=== PATIENT | female | born 1980 | race Caucasian/White ===

== ENCOUNTER 2017-09-09 14:40 | Inpatient (IN) | payer OTHER ==
--- NOTE | 2017-09-09 15:22 | ED ---
Extremity Problem HPI - General Chief complaint: Extremity Problem,Nontraumatic Stated complaint: Tightness In Legs Time Seen by Provider: 09/09/17 15:11 Source: patient, RN notes reviewed Mode of arrival: ambulatory Limitations: no limitations - History of Present Illness Initial comments: This is a 37-year-old female with a history of DVTs who presents to the emergency department with chief complaint of tightness in her left lower extremity. Patient states that she developed a tightness in her left leg yesterday morning. She states that when she has had previous DVTs, this is how it starts. She states that she is a resident at [facility] and they requested that she present to the emergency department to rule out a blood clot. Patient states that she has not noticed any swelling or pain. She reports increasing physical activity recently, stating that she walks up and down the hallways and stairwells. Patient states that she's had venous reconstruction of the left lower extremity from her calf all the way up to her low back. She states that she is currently on a Xarelto 20 mg as well as aspirin daily. Denies any fevers or chills, chest pain or shortness of breath, abdominal pain, nausea or vomiting. - Related Data Allergies Allergy/AdvReac Type Severity Reaction Status Date / Time No Known Allergies Allergy Verified 09/09/17 14:45 Review of Systems ROS Statement: Those systems with pertinent positive or pertinent negative responses have been documented in the HPI. ROS Other: All systems not noted in ROS Statement are negative. 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 HEENT: Head atraumatic, normocephalic. Pupils are equal, round and reactive to light. Extraocular movements intact. Oropharynx moist without erythema or exudate. Neck: Supple. Normal ROM. Cardiovascular: Regular rate and rhythm. No murmurs, rubs or gallops. Chest symmetrical. Respiratory: Lungs clear to auscultation bilaterally. No wheezes, rales or rhonchi. Normal respiratory effort with no use of accessory muscles. Musculoskeletal: Normal ROM, no tenderness bilateral upper and lower extremities. Ambulating normally. No swelling, erythema or tenderness on palpation of the left lower extremity. Sensation is intact. Pedal pulses are 2 + equal and palpable bilaterally. Negative Homans sign. Skin: [place], warm and dry without rashes or lesions. Neurological: Alert and oriented x3. CN II-XII grossly intact. Speech is fluent and answers are appropriate. No focal neuro deficits. Psychiatric: Normal mood and affect. No overt signs of depression or anxiety noted. Limitations: no limitations Course Vital Signs 09/09/17 14:43 Temperature 98.0 F Pulse Rate 70 Respiratory 20 Rate Blood Pressure 105/61 O2 Sat by Pulse 100 Oximetry Medical Decision Making - Medical Decision Making This is a 37-year-old female with a history of DVTs who presents to the emergency department for evaluation of left lower extremity tightness. Patient states that she is a resident of [facility] and that they sent her to the emergency department for an ultrasound to rule out a blood clot. Patient is currently taking Xarelto as well as an aspirin daily. Ultrasound venous Doppler was obtained and revealed evidence for a deep venous thrombosis from external iliac vein to femoral vein. Recommended admission to hospital for possible heparin and a vascular consult. Patient states that she wants to be discharged so that she can go to her own hospital which is 2 hours away. Patient states, "I know the drill and I do not want to stay here." Patient states she will be signing out AMA. I recommended against this, however patient refuses admission. [facility] was contacted and they informed patient that if she signed out AMA she would not be able to return to their facility. Patient is now in agreement for admission. This case was discussed with attending physician, Dr. Hdz who was in contact with Dr. Vyas. Patient will be started on high dose heparin and will be admitted to the hospital with consult to Dr. Dunn, vascular surgery. Patient is in agreement with this plan and voices understanding. All questions answered. - Radiology Data Radiology results: report reviewed Ultrasound venous Doppler duplex left lower extremity: Appears positive for DVT from external iliac vein to distal femoral vein. Internal echoes seen in femoral vein and noncompressible. Compressions deferred at stent site. Low level internal echoes present throughout the distribution of the deep veins of the left lower extremity from the level of the external iliac vein to peripheral femoral vein, there is lack of color-flow. Impression: Deep venous thrombosis throughout the visualized portions of the left lower extremity. Disposition Clinical Impression: Deep vein thrombosis of lower extremity Disposition: ADMITTED IP TO THIS HOSP Condition: Stable Is patient prescribed a controlled substance at d/c from ED?: No Referrals: None,Stated [Primary Care Provider] - 1-2 days Time of Disposition: 19:25
--- NOTE | 2017-09-09 17:47 | US ---
EXAMINATION TYPE: US venous doppler duplex LE LT DATE OF EXAM: 09/09/2017 4:51 PM COMPARISON: NONE CLINICAL HISTORY: pain, history of dvt. Hx of blood clot in long and left leg last year. On blood th inners. Left leg vein reconstruction with stent? SIDE PERFORMED: Left TECHNIQUE: The lower extremity deep venous system is examined utilizing real time linear array sonog gal with graded compression, doppler sonography and color-flow sonography. VESSELS IMAGED: External Iliac Vein (EIV) Common Femoral Vein Deep Femoral Vein Greater Saphenous Vein * Femoral Vein Popliteal Vein Small Saphenous Vein * Proximal Calf Veins (* superficial vessels) Left Leg: Appears POSITIVE for DVT from EIV to distal femoral vein. Internal echoes seen in femoral vein and non compressible. Compressions deferred at stent site. Low-level internal echoes present throughout the distribution of the deep veins of the left lower ext remity from the level of the external iliac vein to peripheral femoral vein, there is lack of color f low. IMPRESSION: Deep venous thrombosis throughout the visualized portions of the left lower extremity.
[2017-09-09] MEDS ORDERED: Acetaminophen-Codeine 300-30mg TAB PO PRN (19:28)
[2017-09-09] MEDS ORDERED: NALOXONE 0.4 MG/ML 1 ML VIAL IV PRN (19:28)
[2017-09-09] MEDS ORDERED: HEPARIN SODIUM,PORCINE 5,000 UNIT/ML 1 ML VIAL IV PRN (19:32)
[2017-09-09] MEDS ORDERED: HEPARIN SODIUM,PORCINE 5,000 UNIT/ML 1 ML VIAL IV ONE (19:32)
[2017-09-09 19:59] LABS: Basophils % (A) 1 %; Eosinophils # (A) 0.1 k/uL (0-0.7); Eosinophils % (A) 2 %; HCT 33.1 % (34.0-46.0); HGB 10.2 gm/dL (11.4-16.0); Hypochromasia Marked; Lymphocytes # (A) 2.4 k/uL (1.0-4.8); Lymphocytes % (A) 40 %; MCH 24.4 pg (25.0-35.0); MCHC 30.9 g/dL (31.0-37.0); Mean Platelet Volume 8.5; Monocytes # (A) 0.3 k/uL (0-1.0); Monocytes % (A) 5 %; Neutrophils % (A) 50 %; Platelet Count 257 k/uL (150-450); RBC 4.19 m/uL (3.80-5.40); RDW 15.7 % (11.5-15.5)
[2017-09-09 20:09] LABS: ALT 19 U/L (9-52); AST 11 U/L (14-36); Albumin 3.8 g/dL (3.5-5.0); Alkaline Phosphatase 72 U/L (38-126); Anion Gap 10 mmol/L; Blood Urea Nitrogen 17 mg/dL (7-17); Carbon Dioxide 25 mmol/L (22-30); Chloride 108 mmol/L (98-107); Glucose 82 mg/dL (74-99); Potassium 4.1 mmol/L (3.5-5.1); Sodium 143 mmol/L (137-145); Total Bilirubin 0.2 mg/dL (0.2-1.3); Total Protein 6.8 g/dL (6.3-8.2)
[2017-09-09 20:14] LABS: INR 1.2 (<1.2); Partial Thromboplastin Time 26.6 sec (22.0-30.0); Prothrombin Time 11.4 sec (9.0-12.0)
[2017-09-09] MEDS: HEPARIN SODIUM,PORCINE/D5W PMX 25,000 UNIT in DEXTROSE/WATER 1 500ML.BAG IV SCH (20:44)
[2017-09-09 21:59] VITALS: BMI 19.8
[2017-09-09] MEDS ORDERED: RIVAROXABAN 20 MG TAB PO SCH (22:45)
[2017-09-09] MEDS: traZODone HCL 50 MG TAB PO SCH (23:25)
[2017-09-09] MEDS: NICOTINE 21MG/24HR PATCH TRANSDERM SCH (23:25)
--- NOTE | 2017-09-09 23:49 | HP ---
HISTORY AND PHYSICAL DATE OF ADMISSION: 09/09/2017. DATE OF SERVICE: 09/09/2017 PRESENTING COMPLAINT: Left leg pain. HISTORY OF PRESENTING COMPLAINT: This is a 37-year-old patient with no family doctor who presented here from [facility]. The patient has been doing IV heroin for 4 years and is there for rehab. The patient's last IV heroin dose was 09/02/2017. The patient has had a prior DVT in the left leg in 2016 for which she is on Xarelto 20 mg and also had a pulmonary embolism in 2005. She thinks she has had blood work done, but never was told of any results. She presents with tightness of the left leg both in the calf, lower extremity and therefore presented to the ER. The patient did undergo a Doppler study and was found to have positive for DVT to the distal femoral vein. I started the patient on IV heparin. Consultation was made to Dr. Dunn from [facility] Surgery [facility] H[facility]. The patient denies any fever, chills and had no white count in the ER. REVIEW OF SYSTEMS: CONSTITUTIONAL: None. HEENT: None. RESPIRATORY: None. CARDIOVASCULAR: None. GASTROINTESTINAL: None. GENITOURINARY: None. MUSCULOSKELETAL: As above. DERMATOLOGICAL: Some chronic skin mcclure. HEMATOLOGICAL: None. LYMPHATICS: None. PSYCHIATRY: Some anxiety. NEUROLOGICAL: None. PAST MEDICAL HISTORY: DVT in the left leg 2016, pulmonary embolism 2005, cleft lip repair, WPW. PAST SURGICAL HISTORY: Vascular surgery to left leg, cleft lip repair. SOCIAL HISTORY: Patient lives with a fiance, has a 13-year-old child. Smokes a pack and a half a day, was doing IV heroin for the last 4 years. Last dose was 09/02/2017, currently at [facility]. FAMILY HISTORY: Reviewed, noncontributory to presentation. HOME MEDICATIONS: 1. Calcium/magnesium 500/250 two tablets daily. 2. Aspirin 81 mg a day. 3. Xarelto 20 mg before supper. 4. Zofran 8 mg every 6 hours p.r.n. 5. Catapres 0.1 mg q.4 p.r.n. 6. BuSpar 10 mg t.i.d. p.r.n. 7. Trazodone 50 mg q.h.s. ALLERGIES: None. EXAMINATION: On examination, afebrile, pulse 70, respirations 20, blood pressure 105/61, pulse ox 100% on room air. GENERAL APPEARANCE: Average built, sitting up, anxious-appearing. EYES: Pupils equal. Conjunctivae normal. HEENT: External appearance of nose and ears normal. Oral cavity normal. NECK: JVD not raised. Mass not palpable. RESPIRATORY: Effort normal. Lungs are clear. CARDIOVASCULAR: First and second sounds normal. No edema. ABDOMEN: Soft, nontender. Liver and spleen not palpable. LYMPHATIC: No lymph node palpable in neck or axillae. PSYCHIATRY: Alert and oriented x3. Mood and affect slightly anxious-appearing. EXTREMITIES: Slight tenderness on the inner side of the left leg thigh and the calf area. INVESTIGATIONS: White count 6, hemoglobin 10.2, platelets 257. Potassium 4.1, BUN and creatinine are normal. ASSESSMENT: 1. Acute deep venous thrombosis in the left lower extremity in a patient who already had a deep venous thrombosis last year, which is not symptomatic. The patient has no fever, no white count. Hence, it makes infective thrombophlebitis less likely and the patient is not looking that sick. At this point, the patient will be started on IV heparin. Xarelto has been held. Will get opinion from [facility] Surgery [facility] Hematology. 2. Chronic nicotine dependence. The patient was counseled against smoking and the complications thereof. More than 3 minutes was spent on this aspect of the case. 3. IV heroin user. The patient is currently in rehab. Will use Catapres p.r.n. for withdrawal symptoms. PLAN: See above. Care was discussed. The patient's questions were answered. The patient will be given a nicotine patch. MMODL / IJN: [id number] /
[2017-09-10] MEDS: LORazepam 1 MG TAB PO PRN ×2 (00:25→21:33)
[2017-09-10] MEDS: SODIUM CHLORIDE 0.9% 1,000 ML IV SCH ×3 (01:00→23:11)
[2017-09-10 03:29] LABS: Basophils % (A) 0 %; Eosinophils # (A) 0.1 k/uL (0-0.7); Eosinophils % (A) 2 %; HCT 30.4 % (34.0-46.0); HGB 9.3 gm/dL (11.4-16.0); Hypochromasia Marked; Lymphocytes # (A) 2.5 k/uL (1.0-4.8); Lymphocytes % (A) 48 %; MCH 24.7 pg (25.0-35.0); MCHC 30.6 g/dL (31.0-37.0); MCV 80.8 fL (80.0-100.0); Mean Platelet Volume 7.8; Monocytes # (A) 0.3 k/uL (0-1.0); Monocytes % (A) 6 %; Neutrophils # (A) 2.1 k/uL (1.3-7.7); Neutrophils % (A) 42 %; Platelet Count 206 k/uL (150-450); RBC 3.76 m/uL (3.80-5.40); WBC 5.1 k/uL (3.8-10.6)
[2017-09-10] MEDS: ASPIRIN 81 MG PO SCH (08:04)
[2017-09-10] MEDS: NICOTINE 21MG/24HR PATCH TRANSDERM SCH ×2 (10:39→21:32)
[2017-09-10] MEDS: cloNIDine HCL 0.1 MG TAB PO PRN (12:11)
--- NOTE | 2017-09-10 13:24 | CONS ---
CONSULTATION This is a 37-year-old pleasant female she came to the emergency room with history of discomfort in the left leg. The patient has history of DVT in the past. The patient was diagnosed with syndrome in 2017 and she was seen at the [facility] and by the interventional radiology and she had a thrombolysis and stent placement to the left iliac vein. The patient missed the appointment because she was in assisted. The patient has history of her using IV heroin for the last 4 years. The last time she took was a 09/02/2017. The patient has history of DVT in 2017 and also history of PE. The patient has been put on Xarelto by the [facility] by interventional Radiology Department. No history of chest pain. No history of leg discomfort or pain. No history of diabetes, hypertension. History of smoking, continues to smoke. EXAMINATION: Patient was seen in her room. NECK: Supple trachea central. CHEST: Clear to auscultation. ABDOMEN: Soft, nontender. VASCULAR EXAMINATION: Femorals are 1+ bilateral, posterior tibial is palpable. There is no evidence of any vascular compromise. The patient had an ultrasound which showed positive for DVT from external iliac vein to distal femoral vein. Internal echoes seen in the femoral vein and noncompressible and the patient had no, compression was applied to the to the stent area and there is a low level of internal echoes present throughout the distribution of the deep vein of the left lower extremity from external iliac vein to the femoral vein. The patient is on IV heparin and we will contact the [facility] the Interventional Radiology Department and have recommendation. [facility] appointment [facility] time because she was in the assisted. At this point, however, there is no compromise noted of her left leg. Her pulses are intact. We will follow with you. Thank you very much for this consultation. MMODL / IJN: [id number] /
[2017-09-10] MEDS: busPIRone HCl 10 MG TAB PO PRN (17:54)
[2017-09-10] MEDS: HEPARIN SODIUM,PORCINE/D5W PMX 25,000 UNIT in DEXTROSE/WATER 1 500ML.BAG IV SCH (19:49)
[2017-09-10] MEDS: traZODone HCL 50 MG TAB PO SCH (21:33)
--- NOTE | 2017-09-10 23:30 | PN ---
PROGRESS NOTE DATE OF SERVICE: 09/10/17 PRESENTING COMPLAINT: Left leg DVT. INTERVAL HISTORY: This patient who is in the rehab for IV heroin, presents with already on Xarelto for DVT and PE, presents with increasing DVT in the left lower extremity. The patient has been on IV heparin. Dr. Dunn is required records from places where she had stent placed. REVIEW OF SYSTEMS: Done for constitutional, cardiovascular, GI, pulmonary; relevant findings as above. CURRENT MEDICATIONS: Include IV heparin and saline. PHYSICAL EXAMINATION: Temperature 97.9, pulse 84, respiratory 18, blood pressure 101/64, pulse ox 98% on room air. General appearance: Lying in bed, awake. Eyes: Pupils equal. Conjunctivae normal. HEENT: External appearance of nose and ears normal. Oral cavity normal. Neck JVD not raised. Mass not palpable. Respiratory effort normal. Lungs are clear. Cardiovascular: 1st and 2nd sounds normal. No edema. ABDOMEN: Soft, nontender. Liver and spleen not palpable. PSYCHIATRY: Alert and oriented x3. Mood and affect normal. Extremities: Minimal tenderness on the inner side of the thigh. INVESTIGATIONS: White count 5.1, hemoglobin 9.3. ASSESSMENT: 1. Acute deep vein thrombosis in the left lower extremity. 2. Chronic deep venous thrombosis and pulmonary embolism for which patient already was on blood thinners. 3. 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 4. IV heparin monitoring. PLAN: Continue current medication and treatment plan. Further decision from Dr. Dunn depending on the records he was getting from the hospital facility. Care was discussed with the patient. MMODL / IJN: [id number] /
[2017-09-11] MEDS: SODIUM CHLORIDE 0.9% 1,000 ML IV SCH ×3 (06:05→21:22)
[2017-09-11] MEDS: ASPIRIN 81 MG PO SCH (07:33)
[2017-09-11 09:13] LABS: Basophils % (A) 1 %; Eosinophils # (A) 0.1 k/uL (0-0.7); Eosinophils % (A) 1 %; HCT 34.1 % (34.0-46.0); HGB 10.3 gm/dL (11.4-16.0); Hypochromasia Marked; Lymphocytes # (A) 1.6 k/uL (1.0-4.8); Lymphocytes % (A) 31 %; MCH 24.6 pg (25.0-35.0); MCHC 30.2 g/dL (31.0-37.0); MCV 81.4 fL (80.0-100.0); Mean Platelet Volume 8.4; Monocytes # (A) 0.1 k/uL (0-1.0); Monocytes % (A) 3 %; Neutrophils # (A) 3.1 k/uL (1.3-7.7); Neutrophils % (A) 63 %; Platelet Count 196 k/uL (150-450); RBC 4.19 m/uL (3.80-5.40); RDW 15.9 % (11.5-15.5)
--- NOTE | 2017-09-11 14:28 | P.CONS ---
History of Present Illness - Reason for Consult Consult date: 09/11/17 recurrent DVT Requesting physician: John Vyas - Chief Complaint swelling in LLE - History of Present Illness Ms. Granados is a very pleasant 37-year old who was treated about 2 or 3 years ago at the [facility] for May-Thurner syndrome. Patient states that she did have thrombectomy and stent placement in the lower pelvis. Patient was supposed to have been for a follow-up in April but, did not do so. Patient has been taking Xarelto as prescribed. Patient denies any signs or symptoms of bleeding, no unrealistic menstrual bleeding. Patient has been participating in rehabilitation at [facility] for heroin abuse and doing rather well. Patient denies any fevers, difficulty swallowing, nausea, difficulty in breathing, abdominal pain, hematuria, black or bloody stool, no acute changes in bowel or bladder habits, the swelling in her left leg is significantly improved. Review of Systems 10 point ROS as stated in HPI Past Medical History Past Medical History: Deep Vein Thrombosis (DVT), Pulmonary Embolus (PE) Additional Past Medical History / Comment(s): WPW, cleft lip, May-Thurner syndrome History of Any Multi-Drug Resistant Organisms: None Reported Additional Past Surgical History / Comment(s): cleft lip repair, vascular sx left lower leg, left inguinal stent placement, thrombectomy Past Psychological History: No Psychological Hx Reported Smoking Status: Current every day smoker Past Alcohol Use History: None Reported Past Drug Use History: Heroin Additional Drug Use History / Comment(s): currently in [place] for rehab - Past Family History Father Family Medical History: No Reported History Mother Family Medical History: Cancer Medications and Allergies Home Medications Medication Instructions Recorded Confirmed Type Aspirin [Adult Low Dose Aspirin EC] 81 mg PO DAILY 09/09/17 09/10/17 History Calcium Carb/Magnesium Ox,Carb 2 tab PO TID PRN 09/09/17 09/10/17 History [Rufino-Mag 500-250 MG Chewable] Ondansetron HCl [Zofran] 8 mg PO Q6H PRN 09/09/17 09/10/17 History Rivaroxaban [Xarelto] 20 mg PO AC-SUPPER 09/09/17 09/10/17 History busPIRone HCl [Buspar] 10 mg PO TID PRN 09/09/17 09/10/17 History cloNIDine HCL [Catapres] 0.1 mg PO Q4HR PRN 09/09/17 09/10/17 History traZODone HCL [TraZODone HCl] 50 - 100 mg PO HS 09/09/17 09/10/17 History Acetaminophen Tab [Tylenol Tab] 650 mg PO Q4H PRN 09/10/17 09/10/17 History Buprenorphine HCl [Subutex] 2 - 4 mg SUBLINGUAL DIRECTED 09/10/17 09/10/17 History Chlorpheniramine Maleate 4 mg PO Q4H PRN 09/10/17 09/10/17 History [Chlor-Trimeton] LORazepam [Ativan] 1 - 2 mg PO DIRECTED 09/10/17 09/10/17 History Multivitamins, Thera [Multivitamin 1 tab PO DAILY 09/10/17 09/10/17 History (formulary)] Thiamine [Vitamin B-1] 100 mg PO DAILY 09/10/17 09/10/17 History Zofran 2mg/Ml 4 mg IM Q6H PRN 09/10/17 09/10/17 History Allergies Allergy/AdvReac Type Severity Reaction Status Date / Time No Known Allergies Allergy Verified 09/10/17 13:02 Physical Exam Vitals: Vital Signs Temp Pulse Resp BP Pulse Ox 09/11/17 07:32 92 16 09/11/17 06:56 97.7 F 92 16 100/58 99 09/10/17 21:39 64 94/48 09/10/17 20:29 98.0 F 84 16 90/52 99 09/10/17 15:47 98.0 F 89 16 95/52 98 09/10/17 15:46 18 Intake and Output 09/10/17 09/11/17 09/11/17 22:59 06:59 14:59 Intake Total 463.513 Balance 463.513 Intake: Intake, IV Titration 463.513 Amount Heparin Sodium,Porcine/ 463.513 D5w Pmx 25,000 unit In Dextrose/Water 1 500ml. bag @ 18 UNITS/KG/HR 20. 08 mls/hr IV .Q24H LEVON Rx #:[id number] Other: # Voids 2 2 - Constitutional General appearance: average body habitus, cooperative, no acute distress - EENT left upper lip scar from cleft palet repair Eyes: anicteric sclerae, EOMI, normal appearance ENT: hearing grossly normal, normal oropharynx - Neck Neck: no lymphadenopathy - Respiratory Respiratory: bilateral: CTA - Cardiovascular Heart sounds: normal: S1, S2 Abnormal Heart Sounds: no systolic murmur, no diastolic murmur, no rub, no S3 Gallop, no S4 Gallop, no click, no other leg Peripheral Edema: right: None, left: Trace dorsalis pedis Peripheral Pulses: bilateral: Normal - Gastrointestinal General gastrointestinal: no absent bowel sounds, no decreased bowel sounds, no distended, no hepatomegaly, no hyperactive bowel sounds, normal bowel sounds, no organomegaly, no rigid, no scaphoid, soft, no splenomegaly, no tenderness, no umbilical hernia, no ventral hernia - Integumentary multiple scars noted on extremities - Neurologic Neurologic: CNII-XII intact - Musculoskeletal Musculoskeletal: strength equal bilaterally - Psychiatric Psychiatric: A&O x's 3, appropriate affect, intact judgment & insight Results CBC & Chem 7: 09/11/17 07:39 09/09/17 19:40 Labs: Abnormal Lab Results - Last 24 Hours (Table) 09/11/17 09/11/17 Range/Units 07:39 09:40 Hgb 10.3 L (11.4-16.0) gm/dL MCH 24.6 L (25.0-35.0) pg MCHC 30.2 L (31.0-37.0) g/dL RDW 15.9 H (11.5-15.5) % APTT 46.8 H (22.0-30.0) sec Venous US: report reviewed Assessment and Plan (1) May-Thurner syndrome Current Visit: Yes Status: Chronic Priority: High Code(s): I87.1 - COMPRESSION OF VEIN SNOMED Code(s): 162340759 (2) Recurrent deep vein thrombosis (DVT) of left lower extremity Current Visit: Yes Status: Acute Priority: High Code(s): I82.402 - ACUTE EMBOLISM AND THOMBOS UNSP DEEP VEINS OF L LOW EXTREM SNOMED Code(s): 576861269 Plan: Case was discussed with Dr. Hunter. Patient has a history of thrombectomy in the left lower extremity so, LLE DVT is an acute clot, rom the doppler report the stent may also be clotted. Patient has been evaluated by Vascular. Suspect need for transfer to tertiary care at [facility] for treatment of occluded stent and new DVT. Pt needs to remain on heparin for her risk of clot propagation is high. Did discuss case with RN and case management.
[2017-09-11] MEDS: ACETAMINOPHEN TAB 325 MG TAB PO PRN (15:34)
--- NOTE | 2017-09-11 17:03 | P.HPADDEND ---
H&P Addendum H&P Addendum Date: 09/11/[address] Hunter have discussed the case and I believe Dr. Dunn has spoken with someone at the [facility], there were no plans to do anything differently at this time. Dr. Hunter's concern is that patient has a mechanical problem (May Thurner syndrome) and that aggressive anticoagulation is necessary until treatment. Lovenox injections recommended with f/u [facility] at [facility].
[2017-09-11] MEDS: cloNIDine HCL 0.1 MG TAB PO PRN (19:50)
[2017-09-11] MEDS: HEPARIN SODIUM,PORCINE/D5W PMX 25,000 UNIT in DEXTROSE/WATER 1 500ML.BAG IV SCH (21:01)
[2017-09-11] MEDS: traZODone HCL 50 MG TAB PO SCH (21:04)
[2017-09-11] MEDS: LORazepam 1 MG TAB PO PRN (21:04)
[2017-09-11] MEDS: ENOXAPARIN 60 MG/0.6 ML SYRINGE SQ SCH (21:04)
[2017-09-11] MEDS: NICOTINE 21MG/24HR PATCH TRANSDERM SCH (21:04)
--- NOTE | 2017-09-11 22:48 | PN ---
PROGRESS NOTE DATE OF SERVICE: 09/11/2017 PRESENTING COMPLAINT: Left leg DVT. INTERVAL HISTORY: This is a patient who is here with [id number] DVT on IV heparin who I saw this afternoon. Dr. Dunn called me, had contacted the outside facility and said at this point they are not going to do anything different. The patient should be maintained on anticoagulation and they will see her as an outpatient. The patient has a prior stent from arteriovenous compression. The patient looks much more comfortable today. REVIEW OF SYSTEMS: Done for constitutional, cardiovascular, GI, pulmonary. The patient has no pain in the legs. CURRENT MEDICATIONS: Reviewed that include IV heparin. PHYSICAL EXAMINATION: Temperature 98, pulse 102, respirations 16, blood pressure 104/52, pulse ox 98% on room. GENERAL APPEARANCE: Lying in bed, awake, comfortable. EYES: Pupils are equal. Conjunctivae normal. HEENT: External appearance of nose and ears normal. Oral cavity normal. NECK: JVD not raised. Mass not palpable. Respiratory effort normal. Lungs are clear. CARDIOVASCULAR: First and seconds sounds normal. No edema. ABDOMEN: Soft, nontender. Liver and spleen not palpable. PSYCHIATRIC: Alert and oriented x3. Mood and affect normal. EXTREMITIES: No tenderness on the left thigh anymore. INVESTIGATIONS: Hemoglobin 10.3, platelets 196,000. PTT noted. ASSESSMENT: 1. Acute deep venous thrombosis in the left lower extremity. 2. Chronic deep venous thrombosis and previous pulmonary embolism for which the patient already was on blood thinners from arteriovenous crossing compression. 3. Intravenous heroin user, currently in rehab. 4. Intravenous heparin monitoring. PLAN: After discussion with Dr. Dunn, I discussed with Dr. Hunter and it was both our impressions that no matter what anticoagulation we use because mechanical obstruction to the vein the patient has a high probability for DVT, but at this point, we both agreed that we should probably change the anticoagulation. Patient has done well on Lovenox before. I discussed with her. Hence, the patient will be switched over to Lovenox this night. I will check her insurance coverage and the patient now that she is asymptomatic hopefully can be discharged tomorrow. Total time spent today was about 40 to 45 minutes with over 20 minutes of discussion. MMCHRISTELL / IJN: [id number] /
[2017-09-12] MEDS: ENOXAPARIN 60 MG/0.6 ML SYRINGE SQ SCH ×2 (08:35→19:47)
[2017-09-12] MEDS: ASPIRIN 81 MG PO SCH (08:35)
[2017-09-12 09:27] LABS: Anisocytosis Slight; Basophils % (A) 0 %; Eosinophils % (A) 1 %; HCT 33.6 % (34.0-46.0); HGB 10.1 gm/dL (11.4-16.0); Hypochromasia Marked; Lymphocytes # (A) 1.5 k/uL (1.0-4.8); Lymphocytes % (A) 33 %; MCH 24.4 pg (25.0-35.0); MCHC 29.9 g/dL (31.0-37.0); MCV 81.7 fL (80.0-100.0); Mean Platelet Volume 8.3; Monocytes # (A) 0.1 k/uL (0-1.0); Monocytes % (A) 3 %; Neutrophils # (A) 2.9 k/uL (1.3-7.7); Neutrophils % (A) 62 %; Platelet Count 210 k/uL (150-450); RBC 4.12 m/uL (3.80-5.40); RDW 16.1 % (11.5-15.5); WBC 4.7 k/uL (3.8-10.6)
[2017-09-12] MEDS: busPIRone HCl 10 MG TAB PO PRN ×2 (12:15→19:47)
[2017-09-12] MEDS: SODIUM CHLORIDE 0.9% 1,000 ML IV SCH (12:19)
[2017-09-12] MEDS: ACETAMINOPHEN TAB 325 MG TAB PO PRN (15:34)
[2017-09-12] MEDS: traZODone HCL 50 MG TAB PO SCH (19:47)
[2017-09-12] MEDS: LORazepam 1 MG TAB PO PRN (19:47)
[2017-09-12] MEDS: cloNIDine HCL 0.1 MG TAB PO PRN (19:47)
[2017-09-12] MEDS: NICOTINE 21MG/24HR PATCH TRANSDERM SCH (19:48)
--- NOTE | 2017-09-12 22:42 | PN ---
PROGRESS NOTE DATE OF SERVICE: 09/12/17 PRESENT COMPLAINT: DVT in the left leg. INTERVAL HISTORY: This patient with acute on chronic DVT, now switched to Lovenox. Supposed to go today hospital with full dose of Lovenox, which is not available at the pharmacy today. Patient otherwise feeling really well. Up and about in the hallway. No pain in the thigh. REVIEW OF SYSTEMS: Done for constitutional, cardiovascular, GI, pulmonary, relevant findings as above. CURRENT MEDICATIONS: Reviewed that include Lovenox. PHYSICAL EXAMINATION: Temperature 98.3, pulse 87, respiratory rate 18, blood pressure 98/53. Pulse ox 100% on room air. General appearance: Sitting up, chirpy, comfortable. EYES: Pupils are equal. Conjunctivae normal. HEENT: External appearance of nose and ears normal. Oral cavity normal. Neck: JVD not raised. Mass not palpable. Respiratory effort normal. Lungs are clear. Cardiovascular: 1st and 2nd sounds normal. No edema. ABDOMEN: Soft, nontender. Liver and spleen is not palpable. Psychiatry: Alert and oriented x3. Mood and affect normal. INVESTIGATIONS: White count 4.7, hemoglobin 10.1. ASSESSMENT: 1. Acute deep vein thrombosis in the left lower extremity. 2. Chronic deep vein thrombosis and previous pulmonary embolism for which patient already was on blood thinners from AV crossing compression. 3. 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 4. IV heparin monitoring, now discontinued. 5. Chronic nicotine dependence, patient is a cigarette smoker. PLAN: Care was discussed. The patient is reminded about not to smoke. The patient will be going home tomorrow. Smoking cessation: Counselling the patient, more than 3 minutes was spent on this aspect of the case. MMODL / IJN: [id number] /
[2017-09-13 06:31] VITALS: BP 91/53; PULSE 58; RESP 16; TEMP 97.8
[2017-09-13] MEDS: ENOXAPARIN 60 MG/0.6 ML SYRINGE SQ SCH (08:07)
[2017-09-13] MEDS: ASPIRIN 81 MG PO SCH (08:07)
[2017-09-13 08:13] LABS: Anisocytosis Slight; Basophils % (A) 0 %; Eosinophils % (A) 1 %; HCT 33.8 % (34.0-46.0); HGB 10.4 gm/dL (11.4-16.0); Hypochromasia Moderate; Lymphocytes # (A) 1.2 k/uL (1.0-4.8); Lymphocytes % (A) 24 %; MCH 24.6 pg (25.0-35.0); MCHC 30.6 g/dL (31.0-37.0); MCV 80.4 fL (80.0-100.0); Mean Platelet Volume 8.6; Monocytes # (A) 0.2 k/uL (0-1.0); Monocytes % (A) 4 %; Neutrophils # (A) 3.3 k/uL (1.3-7.7); Neutrophils % (A) 70 %; Platelet Count 208 k/uL (150-450); RBC 4.21 m/uL (3.80-5.40); RDW 16.5 % (11.5-15.5); WBC 4.8 k/uL (3.8-10.6)
--- NOTE | 2017-09-13 22:10 | DS ---
DISCHARGE SUMMARY DATE OF ADMISSION: 09/09/17. DATE OF DISCHARGE: September 13, 2017. FINAL DIAGNOSES: 1. Acute deep vein thrombosis in the left lower extremity from compression in the deeper veins proximally from an artery. 2. Chronic deep vein thrombosis and previous pulmonary embolism for which patient already on blood thinners that may be crossing compression. 3. 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 4. IV heparin monitoring. 5. Chronic nicotine dependence, patient is a cigarette smoker. HOSPITAL COURSE: This patient who is in rehab for IV heroin, presented with pain in the left leg. The patient was found to have a DVT. Dr. Dunn from vascular surgery saw the patient and contacted the facility. The patient had a stent in the vein. At this point, they recommended to continue with anticoagulation because technically she may not have failed Xarelto as there was a distal obstruction, but it was decided to switch her over to Lovenox. The patient had no further symptoms. Up and about. Breathing is stable. CONSULTATION: Dr. Hunter from Oncology, Dr. Dunn from Vascular Surgery. PHYSICAL EXAMINATION: Lungs are clear. No tenderness along the left thigh. DISCHARGE MEDICATIONS: 1. Aspirin 81 mg a day. 2. BuSpar 10 mg p.o. t.i.d. p.r.n. 3. Catapres 0.1 mg p.o. q.4 p.r.n. 4. Trazodone 50 to 100 mg q.h.s. 5. Zyrtec 2/4 as directed. 6. Ativan 1-2 mg as directed. 7. Multivitamin 1 tablet p.o. daily. 8. Thiamine 100 mg p.o. daily. 9. Zofran q.6h p.r.n. 10.Lovenox 60 mg subcu q.12h to continue. 11.Nicotine 20 mg patch. The patient to follow with Dr. Olivarez in 1 week. Patient to follow up with vascular surgeon at [facility], who Dr. Dunn had contacted and keep an appointment for them. MMODL / IJN: [id number] /
== END 2017-09-13 13:33 | disposition home or self-care (01) | DRG 300 ==
LOC: EC 14:40 → 5MS5E 19:04
PROVIDERS: ADMIT Hospitalist; ATTEND Hospitalist
DX: I82.412 Acute embolism and thrombosis of left femoral vein (principal); F11.23 Opioid dependence with withdrawal; I87.1 Compression of vein; F17.210 Nicotine dependence, cigarettes, uncomplicated; Z79.01 Long term (current) use of anticoagulants; Z79.82 Long term (current) use of aspirin; Z79.899 Other long term (current) drug therapy; Z86.711 Personal history of pulmonary embolism; Z86.718 Personal history of other venous thrombosis and embolism; Z87.730 Personal history of (corrected) cleft lip and palate; I45.6 Pre-excitation syndrome; Z95.828 Presence of other vascular implants and grafts; Z80.9 Family history of malignant neoplasm, unspecified
CPT/HCPCS: 36415; 80053; 85025; 85610; 85730; 96374; 99284